=== PATIENT | female | born 1975 | race Hispanic/Latino ===

== ENCOUNTER 2017-08-07 10:36 | Emergency (ER) | payer OTHER ==
--- NOTE | 2017-08-07 11:29 | ULT ---
LEFT LOWER EXTREMITY VENOUS ULTRASOUND: Date: 08/07/17 COMPARISON: None. HISTORY: History of deep venous thrombosis and pulmonary emboli. Increasing left calf pain over the last 3 da ys. TECHNIQUE: Multiplanar Messer scale and color Doppler images were obtained in a left lower extremity deep venous ultrasound. Spectral analysis of the Doppler waveforms were performed. FINDINGS: The left common femoral vein, profunda femoral vein, superficial femoral vein, and popliteal vein we re normal in appearance without visible thrombus. These vessels demonstrate normal compression, flow , and augmentation. The left posterior tibial vein and greater saphenous vein were also patent. IMPRESSION: No evidence of left lower extremity deep venous thrombosis. POS: [facility]
== END 2017-08-07 11:44 | disposition home or self-care (01) ==
LOC: ERS 10:36
DX: S86.912A Strain of unspecified muscle(s) and tendon(s) at lower leg level, left leg, initial encounter (principal); M86.9 Osteomyelitis, unspecified; E11.9 Type 2 diabetes mellitus without complications; I10 Essential (primary) hypertension; F32.9 Major depressive disorder, single episode, unspecified; J45.909 Unspecified asthma, uncomplicated; Z87.442 Personal history of urinary calculi; Z79.84 Long term (current) use of oral hypoglycemic drugs; Z79.891 Long term (current) use of opiate analgesic; Z79.899 Other long term (current) drug therapy; X58.XXXA Exposure to other specified factors, initial encounter

== ENCOUNTER 2018-03-09 07:08 | Emergency (ER) | payer MEDICARE, MEDICAID ==
[2018-03-09] MEDS ORDERED: HYDROcodone/Acetaminophen 10/325 mg Tablet ONE (08:27)
[2018-03-09] MEDS ORDERED: Ketorolac Tromethamine 30 MG/ML VIAL ONE (08:28)
--- NOTE | 2018-03-09 09:42 | RAD ---
THREE VIEWS LUMBAR SPINE: INDICATION: Chronic low back pain exacerbated over the last 2 days. COMPARISON: None. FINDINGS: There are 5 lumbar-type vertebrae. There is moderate to severe loss of disk space height with slight left-sided asymmetric narrowing involving L4-5. There are marginal osteophytes surrounding the L4-5 disk space. There is moderate to severe facet osteoarthritic change at L4-5. Mild degenerative dis k disease is seen at L3-4 and L5-S1. Vertebral body heights are within normal limits. No abnormal l isthesis is seen on the lateral projection. There are scattered phleboliths within the lower pelvis. IMPRESSION: 1. Moderate to severe disk degenerative and facet osteoarthritic change at L4-5. 2. Mild degenerative disk disease seen in the remaining lumbar spine. POS: [facility]
== END 2018-03-09 09:07 | disposition home or self-care (01) ==
LOC: ERS 07:08
DX: M54.5 Low back pain (principal); G89.29 Other chronic pain; E11.9 Type 2 diabetes mellitus without complications; F32.9 Major depressive disorder, single episode, unspecified; I10 Essential (primary) hypertension; J45.909 Unspecified asthma, uncomplicated; Z87.442 Personal history of urinary calculi
CPT/HCPCS: 72100; 96372; J1885

== ENCOUNTER 2018-04-08 08:13 | Outpatient (CLI) | payer MEDICARE, MEDICAID ==
--- NOTE | 2018-04-08 12:14 | MRI ---
MRI LUMBAR SPINE WITH AND WITHOUT CONTRAST: HISTORY: Lumbar disk degeneration. Previous laminectomy and diskectomy. COMPARISON: None. TECHNIQUE: MRI lumbar spine is performed with and without intravenous Gadolinium administration. Multisequentia l, multiplanar imaging is performed. FINDINGS: There is straightening of normal lumbar lordosis which is presumably positional. Intrinsic T1 and T2 hyperintensity involving the L3 vertebral body, compatible with a hemangioma. There is intrinsic T1 and T2 hyperintensity involving the inferior end plate of L4, superior end plate of L5, without sign ificant STIR hyperintensity. Type II Modic changes are favored. Overall, there is appropriate T1 ma rrow signal intensity in the lumbar vertebrae. No evidence of fracture. Straightening of normal lumbar lordosis is noted. Symmetric signal intensity of the psoas muscles. The visualized solid organs have appropriate signal intensity. Conus medullaris terminates at the superior aspect of L1. On the postcontrast images, there is no abnormal enhancement within the thecal sac . Vertebral cam s also have appropriate enhancement. T12-L1: No significant central canal stenosis or foraminal narrowing. L1-L2: Adequate disk hydration. No significant central canal stenosis or foraminal narrowing. L2-L3: Adequate disk hydration. No significant central canal stenosis or foraminal narrowing. L3-L4: Dessication with mild loss of disk space height. Generalized disk bulge abuts the thecal sac . There is intrinsic T2 hyperintensity involving the central posterior margin of the disk with assoc iated enhancement. A small annular fissure is favored. At the level of the fissure, there is minima l disk protrusion. Overall, there is no significant central canal stenosis. The neural foramina are patent. L4-L5: Severe loss of disk space height. There is a small left and right subarticular disk bulge. Disk material abuts but does not obscure the traversing right/left L5 nerve roots. There is no signi ficant stenosis. Of the thecal sac. Left laminectomy defect is identified. Enhancing scar tissue is noted. Moderate bilateral foraminal narrowing. L5-S1: Desiccation with moderate loss of disk space height. There is an intrinsic T2 hyperintensity involving the posterior margin of the disk with associated enhancement. Annular fissure is favored. The annular fissure abuts both traversing S1 nerve roots. There is minimal encroachment upon both subarticular zones. A left hemilaminectomy defect is identified. There is minimal scar tissue. The re is no significant stenosis of the thecal sac. Moderate to severe right and severe left foraminal narrowing. IMPRESSION: 1. Annular fissure at L3-L4 and L5-S1. 2. Encroachment upon bilateral traversing L5 and S1 nerve roots as described above. 3. Significant bilateral foraminal narrowing at L5-S1. POS: [facility]
[2018-04-08] MEDS ORDERED: Gadobenate Dimeglumine 529 MG/1 ML (20ML VIAL) ONE (13:41)
== END 2018-04-08 08:14 | disposition home or self-care (01) ==
LOC: TBSIIMAG 08:13
PROVIDERS: ATTEND Neurological Surgery
DX: M51.36 Other intervertebral disc degeneration, lumbar region (principal); Q05.7 Lumbar spina bifida without hydrocephalus; M99.83 Other biomechanical lesions of lumbar region; M99.84 Other biomechanical lesions of sacral region
CPT/HCPCS: 72158; A9579